=== PATIENT | female | born 1965 | race Caucasian/White ===

== ENCOUNTER 2017-07-23 00:41 | Emergency (ER) | payer SELFPAY ==
[2017-07-23] MEDS ORDERED: Ketorolac Tromethamine 30 MG/ML VIAL ONE (03:26)
[2017-07-23] MEDS ORDERED: Acetaminophen/Codeine 30-300mg Tablet ONE (04:17)
--- NOTE | 2017-07-23 08:31 | RAD ---
THREE VIEWS LEFT ANKLE: HISTORY: Left ankle pain. TECHNIQUE: AP, lateral, and oblique views of the left ankle are obtained. FINDINGS: Images demonstrate a small area of osseous density along the inferior aspect of the lateral malleolu s. This may represent a small avulsion fracture. Correlate with clinical exam. No other fractures or bony lesions seen. IMPRESSION: Possible small avulsion fracture, inferior left lateral malleolus. CODE T POS: [facility]
== END 2017-07-23 04:35 | disposition home or self-care (01) ==
LOC: ERS 00:41
DX: S82.62XA Displaced fracture of lateral malleolus of left fibula, initial encounter for closed fracture (principal); F32.9 Major depressive disorder, single episode, unspecified; F17.210 Nicotine dependence, cigarettes, uncomplicated; X50.1XXA Overexertion from prolonged static or awkward postures, initial encounter
CPT/HCPCS: 29515; 96372; J1885

== ENCOUNTER 2017-08-22 22:32 | Emergency (ER) | payer SELFPAY ==
--- NOTE | 2017-08-22 23:10 | RAD ---
THREE VIEWS LEFT ANKLE: Date: 08-22-17 History: Patient re-injured right ankle. FINDINGS: AP, lateral, and oblique images demonstrate again an avulsion fracture as seen on previous radiograp h. This avulsion fracture has some decreased density compared to the previous exam. No definite evid ence of new acute fracture is seen. No other left ankle abnormality is seen. IMPRESSION: Some remottling noted in the previously noted avulsion fracture. No acute abnormality seen. POS: [facility]
[2017-08-23] MEDS ORDERED: Ketorolac Tromethamine 60 MG/2 ML VIAL ONE (00:39)
== END 2017-08-23 01:00 | disposition home or self-care (01) ==
LOC: ERS 22:32
DX: M25.572 Pain in left ankle and joints of left foot (principal); J45.909 Unspecified asthma, uncomplicated; F32.9 Major depressive disorder, single episode, unspecified; F17.210 Nicotine dependence, cigarettes, uncomplicated
CPT/HCPCS: 96372; J1885

== ENCOUNTER 2017-08-28 10:15 | Emergency (ER) | payer SELFPAY ==
[2017-08-28] MEDS ORDERED: Dexamethasone 10 MG/ML VIAL ONE (11:28)
[2017-08-28] MEDS ORDERED: Hydrocodone-Acetamin 15 ML UDCUP ONE (11:31)
[2017-08-28] MEDS ORDERED: Ketorolac Tromethamine 30 MG/ML VIAL ONE (11:45)
== END 2017-08-28 12:06 | disposition home or self-care (01) ==
LOC: ERS 10:15
DX: J02.9 Acute pharyngitis, unspecified (principal); J45.909 Unspecified asthma, uncomplicated; F32.9 Major depressive disorder, single episode, unspecified; F17.210 Nicotine dependence, cigarettes, uncomplicated; Z79.899 Other long term (current) drug therapy
CPT/HCPCS: 87081; 87430; 96372; 99406; J1100; J1885

== ENCOUNTER 2017-09-09 15:45 | Emergency (ER) | payer SELFPAY ==
--- NOTE | 2017-09-09 17:11 | RAD ---
LEFT ANKLE THREE VIEWS: 09/09/17 HISTORY: 52-year-old female with left ankle pain. Again noted are small chip type avulsion fractures off the distal fibular tip and off the lateral ta jess. There does appear to be some bony callus formation involving the distal fibular tip avulsion. N o significant malalignment. IMPRESSION: Evidence for healing avulsion type fractures of the tip of the fibula and also off the lateral talus . Healing is not yet complete. No new fracture. POS: [facility]
== END 2017-09-09 16:58 | disposition home or self-care (01) ==
LOC: ERS 15:45
DX: S93.402A Sprain of unspecified ligament of left ankle, initial encounter (principal); F32.9 Major depressive disorder, single episode, unspecified; J45.909 Unspecified asthma, uncomplicated; F17.210 Nicotine dependence, cigarettes, uncomplicated; X50.9XXA Other and unspecified overexertion or strenuous movements or postures, initial encounter

== ENCOUNTER 2017-12-17 00:53 | Emergency (ER) | payer SELFPAY ==
[2017-12-17] MEDS ORDERED: Ketorolac Tromethamine 60 MG/2 ML VIAL ONE (01:49)
--- NOTE | 2017-12-17 09:23 | RAD ---
LEFT ANKLE 3 VIEWS: HISTORY: Left ankle pain. COMPARISON: 09/09/17. FINDINGS: The ankle mortise is intact. The thin ossific density just beyond the lateral malleolus is again dem onstrated, with mild periosteal reaction and callus formation. Small plantar and Achilles enthesophy augustina arise from the posterior aspect of the calcaneus. IMPRESSION: Incompletely healed ossific avulsion from the distal tip of the left lateral malleolus. Findings are otherwise stable. POS: [facility]
== END 2017-12-17 02:40 | disposition home or self-care (01) ==
LOC: ERS 00:53
DX: M25.572 Pain in left ankle and joints of left foot (principal); J45.909 Unspecified asthma, uncomplicated; F32.9 Major depressive disorder, single episode, unspecified; F17.210 Nicotine dependence, cigarettes, uncomplicated
CPT/HCPCS: 96372; J1885

== ENCOUNTER 2018-03-04 20:07 | Emergency (ER) | payer SELFPAY ==
--- NOTE | 2018-03-04 21:16 | RAD ---
CHEST PA AND LATERAL: 03/04/18 HISTORY: 53-year-old female with history of cough. FINDINGS: Heart size is normal. The lungs are clear. No evidence for pneumonia. Stable from prior 11/05/13 study. IMPRESSION: No acute intrathoracic disease. No evidence for pneumonia. POS: [facility]
[2018-03-04] MEDS ORDERED: Ketorolac Tromethamine 30 MG/ML VIAL ONE (23:19)
== END 2018-03-04 23:40 | disposition home or self-care (01) ==
LOC: ERS 20:07
DX: B34.9 Viral infection, unspecified (principal); J45.909 Unspecified asthma, uncomplicated; F32.9 Major depressive disorder, single episode, unspecified; F17.210 Nicotine dependence, cigarettes, uncomplicated
CPT/HCPCS: 71046; 87804; 96372; J1885

== ENCOUNTER 2019-01-26 14:27 | Emergency (ER) | payer SELFPAY ==
[2019-01-26] MEDS ORDERED: Ketorolac Tromethamine 30 MG/ML VIAL ONE (15:04)
--- NOTE | 2019-01-26 15:17 | RAD ---
PA AND LATERAL CHEST: Date: 01/26/19 HISTORY: Productive cough. COMPARISON: 03/04/18 study. FINDINGS: Heart size and mediastinum are within normal limits. The lungs are clear of infiltrates. IMPRESSION: No active intrathoracic disease. POS: [facility]
== END 2019-01-26 16:06 | disposition home or self-care (01) ==
LOC: ERS 14:27
DX: S29.012A Strain of muscle and tendon of back wall of thorax, initial encounter (principal); J20.9 Acute bronchitis, unspecified; F17.210 Nicotine dependence, cigarettes, uncomplicated; F32.9 Major depressive disorder, single episode, unspecified; J45.909 Unspecified asthma, uncomplicated; X50.1XXA Overexertion from prolonged static or awkward postures, initial encounter
CPT/HCPCS: 71046; 94640; 96372; J1885; J7620

== ENCOUNTER 2019-08-21 14:50 | Emergency (ER) | payer SELFPAY | END 2019-08-21 15:33 | disposition home or self-care (01) | LOC: ERS 14:50 | DX: J30.9 Allergic rhinitis, unspecified (principal); J45.909 Unspecified asthma, uncomplicated; F41.9 Anxiety disorder, unspecified; F32.9 Major depressive disorder, single episode, unspecified; F17.210 Nicotine dependence, cigarettes, uncomplicated | CPT/HCPCS: 87081; 87430; 87804; 99281 ==

== ENCOUNTER 2019-09-14 17:26 | Emergency (ER) | payer SELFPAY ==
[2019-09-14] MEDS ORDERED: Diazepam 5 MG TAB ONE (18:15)
[2019-09-14] MEDS ORDERED: Ketorolac Tromethamine 60 MG/2 ML VIAL ONE (18:15)
== END 2019-09-14 18:45 | disposition home or self-care (01) ==
LOC: ERS 17:26
DX: S29.012A Strain of muscle and tendon of back wall of thorax, initial encounter (principal); J45.909 Unspecified asthma, uncomplicated; F41.9 Anxiety disorder, unspecified; F32.9 Major depressive disorder, single episode, unspecified; F17.210 Nicotine dependence, cigarettes, uncomplicated; X50.9XXA Other and unspecified overexertion or strenuous movements or postures, initial encounter
CPT/HCPCS: 96372; 99283; J1885

== ENCOUNTER 2019-09-15 14:02 | Emergency (ER) | payer SELFPAY ==
[2019-09-15] MEDS ORDERED: HYDROcodone/Acetaminophen 10/325 mg Tablet ONE (14:26)
== END 2019-09-15 14:38 | disposition home or self-care (01) ==
LOC: ERS 14:02
DX: B02.9 Zoster without complications (principal); J45.909 Unspecified asthma, uncomplicated; F41.9 Anxiety disorder, unspecified; F32.9 Major depressive disorder, single episode, unspecified; F17.210 Nicotine dependence, cigarettes, uncomplicated; Z79.899 Other long term (current) drug therapy
CPT/HCPCS: 99283

== ENCOUNTER 2019-09-20 11:24 | Emergency (ER) | payer SELFPAY ==
[2019-09-20] MEDS ORDERED: HYDROcodone/Acetaminophen 5/325 mg Tablet ONE (14:05)
== END 2019-09-20 14:10 | disposition home or self-care (01) ==
LOC: ERS 11:24
DX: S29.012A Strain of muscle and tendon of back wall of thorax, initial encounter (principal); B02.9 Zoster without complications; J45.909 Unspecified asthma, uncomplicated; F17.210 Nicotine dependence, cigarettes, uncomplicated; Z79.899 Other long term (current) drug therapy; W19.XXXA Unspecified fall, initial encounter
CPT/HCPCS: 99282

== ENCOUNTER 2019-11-01 18:12 | Emergency (ER) | payer SELFPAY ==
[2019-11-01] MEDS ORDERED: HYDROcodone/Acetaminophen 5/325 mg Tablet ONE (19:41)
== END 2019-11-01 19:51 | disposition home or self-care (01) ==
LOC: ERS 18:12
DX: B02.29 Other postherpetic nervous system involvement (principal); F41.9 Anxiety disorder, unspecified; F32.9 Major depressive disorder, single episode, unspecified; F17.210 Nicotine dependence, cigarettes, uncomplicated; J45.909 Unspecified asthma, uncomplicated; Z79.899 Other long term (current) drug therapy
CPT/HCPCS: 99283

== ENCOUNTER 2021-01-01 14:37 | Emergency (ER) | payer SELFPAY | END 2021-01-01 15:42 | disposition home or self-care (01) | LOC: ERS 14:37 | DX: B02.9 Zoster without complications (principal); J45.909 Unspecified asthma, uncomplicated; F17.210 Nicotine dependence, cigarettes, uncomplicated; Z79.899 Other long term (current) drug therapy | CPT/HCPCS: 99283 ==

== ENCOUNTER 2021-01-26 10:32 | Outpatient (CLI) | payer OTHER | END 2021-01-26 10:33 | disposition home or self-care (01) | LOC: BICRAD 10:32 | PROVIDERS: ATTEND Nurse Practitioner Family | DX: R07.89 Other chest pain (principal) | CPT/HCPCS: 71046 ==

== ENCOUNTER 2021-04-10 10:34 | Outpatient (CLI) | payer OTHER | END 2021-04-10 10:35 | disposition home or self-care (01) | LOC: ULT 10:34 | PROVIDERS: ATTEND Nurse Practitioner Family | DX: R10.13 Epigastric pain (principal); K76.0 Fatty (change of) liver, not elsewhere classified | CPT/HCPCS: 76705 ==

== ENCOUNTER 2021-04-25 15:20 | Emergency (ER) | payer OTHER, SELFPAY ==
[2021-04-25] MEDS ORDERED: Ketorolac Tromethamine 30 MG/ML VIAL ONE (16:04)
== END 2021-04-25 16:50 | disposition home or self-care (01) ==
LOC: ERS 15:20
DX: S30.0XXA Contusion of lower back and pelvis, initial encounter (principal); J45.909 Unspecified asthma, uncomplicated; F17.210 Nicotine dependence, cigarettes, uncomplicated; Z79.899 Other long term (current) drug therapy; V49.9XXA Car occupant (driver) (passenger) injured in unspecified traffic accident, initial encounter
CPT/HCPCS: 71045; 72040; 72100; 96372; J1885

== ENCOUNTER 2022-03-14 13:24 | Emergency (ER) | payer SELFPAY ==
[~2022-03-14 13:24] MED LIST: Iopamidol-370 76% 500 ML 1 ML ONE
[2022-03-14 14:20] LABS: #Basophils 0.1 thou/uL (0.0-0.2); #Eosinphils 0.1 thou/uL (0.0-0.7); #Lymphocytes 2.7 thou/uL (1.20-3.40); #Monocytes 0.6 thou/uL (0.11-0.59); #Neutrophils 5.9 thou/uL (1.40-6.50); %Basophils 0.8 % (0.0-1.0); %Eosinophils 1.4 % (0.0-10.0); %Lymphocytes 28.8 % (21.0-51.0); %Neutrophils 63.1 % (42.0-75.0); Hemoglobin 14.2 g/dL (12.0-16.0); Mean Corpuscular HGB CONC 32.9 g/dL (32.0-36.0); Mean Corpuscular Hemoglobin 32.1 pg (27.0-31.0); Mean Corpuscular Volume 97.5 fL (78.0-98.0); Mean Platelet Volume 8.6 fL (7.4-10.4); Platelet Count 228 thou/uL (130-400); RBC Distribution Width 12.5 % (11.5-14.5); Red Blood Cell (RBC) Count 4.42 mill/uL (4.20-5.40); White Blood Cell (WBC) Count 9.3 thou/uL (4.8-10.8)
[2022-03-14 14:39] LABS: ALT (SGPT) 11 U/L (8-55); AST (SGOT) 13 U/L (5-34); Alkaline Phosphatase 84 U/L (40-110); Anion Gap 14 mmol/L (10-20); BUN (Urea Nitrogen) 8 mg/dL (9.8-20.1); Bilirubin, Total 0.3 mg/dL (0.2-1.2); Calc. Creatinine Clearance 0 mL/min (70-130); Calcium 9.1 mg/dL (7.8-10.44); Carbon Dioxide 25 mmol/L (22-29); Chloride 105 mmol/L (98-107); Globulin 3.2 g/dL (2.4-3.5); Glucose 85 mg/dL (70-105); Lipase 16 U/L (8-78); Potassium 4.2 mmol/L (3.5-5.1); Protein, Total 7.2 g/dL (6.0-8.3); Sodium 140 mmol/L (136-145)
[2022-03-14] MEDS ORDERED: hydrOXYzine 25 MG TAB ONE (15:34)
[2022-03-14] MEDS ORDERED: Pantoprazole 40 MG VIAL ONE (16:20)
[2022-03-14 16:36] LABS: Bilirubin Negative (Negative); Blood, Urine Negative (Negative); Clarity Clear (Clear); Glucose, Urine (Dipstick) Normal (Negative); Ketone, Urine Negative (Negative); Leukocyte Negative Leu/uL (Negative); Nitrite Negative (Negative); Protein, Urine (Dipstick) 10 mg/dL (Neg-Trace); Specific Gravity, Urine 1.023 (1.002-1.036); Urobilinogen Normal mg/dL (Less than 2)
== END 2022-03-14 17:18 | disposition home or self-care (01) ==
LOC: ERS 13:24
DX: R10.9 Unspecified abdominal pain (principal); R10.816 Epigastric abdominal tenderness; F41.9 Anxiety disorder, unspecified; F17.210 Nicotine dependence, cigarettes, uncomplicated
CPT/HCPCS: 36415; 71045; 74177; 80053; 81003; 83690; 84484; 85025; 93005; 96360; C9113; Q9967

== ENCOUNTER 2022-12-21 20:22 | Emergency (ER) | payer SELFPAY ==
[2022-12-21] MEDS ORDERED: HYDROcodone/Acetaminophen 10/325 mg Tablet ONE (22:08)
[2022-12-21] MEDS ORDERED: Ketorolac Tromethamine 30 MG/ML VIAL ONE (22:09)
[2022-12-21 22:41] LABS: #Basophils 0.1 thou/uL (0.0-0.2); #Eosinphils 0.1 thou/uL (0.0-0.7); #Lymphocytes 3.3 thou/uL (1.20-3.40); #Monocytes 0.6 thou/uL (0.11-0.59); %Basophils 0.8 % (0.0-1.0); %Eosinophils 1.3 % (0.0-10.0); %Lymphocytes 32.3 % (21.0-51.0); %Monocytes 6.2 % (0.0-10.0); %Neutrophils 59.3 % (42.0-75.0); Hemoglobin 13.1 g/dL (12.0-16.0); Mean Corpuscular HGB CONC 33.1 g/dL (32.0-36.0); Mean Corpuscular Hemoglobin 31.1 pg (27.0-31.0); Mean Platelet Volume 9.1 fL (7.4-10.4); Platelet Count 197 10x3/uL (130-400); RBC Distribution Width 12.9 % (11.5-14.5); Red Blood Cell (RBC) Count 4.21 mill/uL (4.20-5.40)
[2022-12-21 23:04] LABS: ALT (SGPT) 11 U/L (8-55); AST (SGOT) 11 U/L (5-34); Albumin 3.7 g/dL (3.5-5.0); Alkaline Phosphatase 82 U/L (40-110); Anion Gap 14 mmol/L (10-20); BUN (Urea Nitrogen) 16 mg/dL (9.8-20.1); Bilirubin, Total 0.2 mg/dL (0.2-1.2); CK (CPK) 77 U/L (29-168); Calc. Creatinine Clearance 0 mL/min (70-130); Calcium 9.3 mg/dL (7.8-10.44); Carbon Dioxide 25 mmol/L (22-29); Chloride 106 mmol/L (98-107); Estimated GFR 56; Globulin 3.1 g/dL (2.4-3.5); Glucose 114 mg/dL (70-105); Lipase 26 U/L (8-78); Potassium 3.8 mmol/L (3.5-5.1); Protein, Total 6.8 g/dL (6.0-8.3); Sodium 141 mmol/L (136-145)
== END 2022-12-21 23:50 | disposition home or self-care (01) ==
LOC: ERS 20:22
DX: M54.9 Dorsalgia, unspecified (principal); F17.210 Nicotine dependence, cigarettes, uncomplicated
CPT/HCPCS: 36415; 71045; 80053; 82550; 83690; 84484; 85025; 85379; 93005; 96374; J1885

== ENCOUNTER 2024-10-17 09:52 | Emergency (ER) | payer SELFPAY ==
[2024-10-17] MEDS ORDERED: predniSONE 20 MG TAB ONE (12:38)
[2024-10-17] MEDS ORDERED: diphenhydrAMINE 25 MG CAP ONE (12:38)
[2024-10-17 13:18] LABS: ALT (SGPT) 14 U/L (8-55); AST (SGOT) 13 U/L (5-34); Albumin 3.7 g/dL (3.5-5.0); Alkaline Phosphatase 95 U/L (40-110); Anion Gap 13 mmol/L (10-20); BUN (Urea Nitrogen) 9 mg/dL (9.8-20.1); Bilirubin, Total 0.2 mg/dL (0.2-1.2); Calc. Creatinine Clearance 0 mL/min (70-130); Calcium 9.5 mg/dL (7.8-10.44); Carbon Dioxide 26 mmol/L (22-29); Chloride 105 mmol/L (98-107); Estimated GFR 87; Globulin 3.7 g/dL (2.4-3.5); Glucose 100 mg/dL (70-105); Potassium 4.4 mmol/L (3.5-5.1); Protein, Total 7.4 g/dL (6.0-8.3); Sodium 140 mmol/L (136-145); Uric Acid 3.7 mg/dL (2.6-6.0)
== END 2024-10-17 14:25 | disposition home or self-care (01) ==
LOC: ERS 09:52
DX: S50.861A Insect bite (nonvenomous) of right forearm, initial encounter (principal); F17.210 Nicotine dependence, cigarettes, uncomplicated; W57.XXXA Bitten or stung by nonvenomous insect and other nonvenomous arthropods, initial encounter
CPT/HCPCS: 36415; 80053; 84550; 99282; J7512